=== PATIENT | female | born 1945 | race Caucasian/White ===

== ENCOUNTER 2018-04-20 09:30 | Outpatient (RCR) | payer SELFPAY ==
--- NOTE | 2018-03-14 11:30 | DT_ITS ---
This patient was seen during an EMR downtime March 14, 2018 - March 21, 2018. This patient may have a combination of paper and electronic documentation or all paper documentation. All documentation is viewable within the e-chart portion of [facility] for each patient visit.
--- NOTE | 2018-07-04 16:40 | HP.PT.NRP ---
HP - Discharge Summary (1) - Patient Information JUAN ENCINAS was seen in my office for initial evaluation on 03/01/18. The following Plan of Care was established for this patient: Initial Frequency: 1x/Week Initial Duration: 6 Weeks - Anticipated Interventions Manual Therapy Techniques to Include: Functional dry needling This patient was last seen in our office . Pertinent comments regarding their Physical therapy will appear below: Patient has not attended physical therapy in over 8 weeks and is appropriate for d/c. At this point I will be discontinuing this patient from physical therapy. I would be happy to see this patient again in the future if found appropriate by the physician. Thank you! Candace Rangel
== END 2018-04-20 19:00 | disposition home or self-care (01) ==
LOC: PT 09:30
DX: R69 Illness, unspecified (principal)

== ENCOUNTER 2020-12-19 10:40 | Outpatient (RCR) | payer MEDICARE, SELFPAY ==
[2020-12-19] MEDS: COVID-19 VACC, MRNA(PFIZER)/PF 30 MCG/0.3 ML SYRINGE IM (09:29)
[2021-01-09] MEDS: COVID-19 VACC, MRNA(PFIZER)/PF 30 MCG/0.3 ML SYRINGE IM (09:17)
== END 2021-03-18 23:59 ==
LOC: IMMUN 10:40
PROVIDERS: PCP Family Medicine; Referring Provider Family Medicine; Visit Provider Family Medicine
DX: Z23 Encounter for immunization (principal)
CPT/HCPCS: 0001A; 0002A; 91300